=== PATIENT | male | born 1940 | race Caucasian/White ===

== ENCOUNTER → 2023-02-11 | Outpatient (CLI) | payer MEDICARE, OTHER ==
[~2023-02-11] MED LIST: ALPR0.5T7 PO; ASPI81CH43 PO; ATEN50TA PO; ATOR-47 PO; CITA20TA9; CLOP75TA28 PO; HYDR12.59 PO; HYDR500T13 PO; LISIPOW PO; METF-370 PO; TERA2CAP45 PO
== END | disposition home or self-care (01) ==
LOC: Rad HDHVI 10:06
PROVIDERS: ATTEND Internal Medicine Cardiovascular Disease
DX: I34.81 Nonrheumatic mitral (valve) annulus calcification (principal); R06.02 Shortness of breath; I10 Essential (primary) hypertension
CPT/HCPCS: 93306

== ENCOUNTER → 2023-02-16 | Outpatient (CLI) | payer MEDICARE, OTHER | END | disposition home or self-care (01) | LOC: Rad HDHVI 10:11 | PROVIDERS: ATTEND Internal Medicine Cardiovascular Disease | DX: I65.22 Occlusion and stenosis of left carotid artery (principal); I65.02 Occlusion and stenosis of left vertebral artery; I11.0 Hypertensive heart disease with heart failure; I50.43 Acute on chronic combined systolic (congestive) and diastolic (congestive) heart failure | CPT/HCPCS: 93880 ==

== ENCOUNTER 2023-08-08 07:15 | Inpatient (IN) | payer MEDICARE ==
[2023-07-07 09:30] LABS: Basophils # (auto) 0 10 ^3/uL (0-0.2); Basophils % (auto) 0.3 % (0.0-2.0); Eosinophils # (auto) 0.2 10 ^3/uL (0-0.8); Eosinophils % (auto) 2.4 % (0.0-7.0); Hematocrit 36.2 % (41.0-53.0); Lymphocytes % (auto) 10.8 % (10.0-50.0); Mean Corpuscular Hemoglobin 28.5 pg (28.0-32.0); Mean Corpuscular Hgb Conc. 33.2 g/dL (32.0-36.0); Monocytes # (auto) 1.2 10 ^3/uL (0-1.3); Monocytes % (auto) 13.5 % (0.0-12.0); Neutrophils # (auto) 6.5 10 ^3/uL (1.6-8.6); Red Blood Cells 4.21 10^6/uL (4.5-5.90); Red Cell Distribution Width 14.8 % (11.8-14.3)
[2023-07-07 09:58] LABS: INR 1.01 (0.9-1.15); Partial Thromboplastin Time 30.5 SEC (24.5-34.5); Prothrombin Time 10.6 sec (9.3-11.8); Urine Bacteria NONE SEEN /hpf (None Seen); Urine Blood Negative /uL (Negative); Urine Clarity Clear (Clear); Urine Color Colorless (Yellow); Urine Protein, UAD Negative (Negative); Urine Urobilinogen Normal (Negative); Urine WBC <1 /hpf (0 - 3)
[2023-07-07 10:23] LABS: Alanine Aminotransferase 15 U/L (7-40); Albumin 4.3 g/dL (3.2-4.8); Alkaline Phosphatase 42 U/L (46-116); Anion Gap 5 (5-15); Aspartate Aminotransferase 14 U/L (13-40); Blood Urea Nitrogen 14 mg/dL (9-23); Calcium 9.4 mg/dL (8.5-10.1); Carbon Dioxide 28 mmol/L (20-30); Chloride 96 mmol/L (98-107); Glucose 78 mg/dL (74-106); Potassium 4.3 mmol/L (3.5-5.1); Sodium 129 mmol/L (136-145)
[2023-07-07 10:24] LABS: Bilirubin, Total 0.5 mg/dL (0.2-1.0)
[2023-08-03 09:38] LABS: Basophils # (auto) 0 10 ^3/uL (0-0.2); Basophils % (auto) 0.4 % (0.0-2.0); Eosinophils # (auto) 0.2 10 ^3/uL (0-0.8); Eosinophils % (auto) 2.9 % (0.0-7.0); Hematocrit 35.7 % (41.0-53.0); Hemoglobin 12.1 g/dL (13.5-17.5); Mean Corpuscular Hemoglobin 28.5 pg (28.0-32.0); Mean Corpuscular Hgb Conc. 33.8 g/dL (32.0-36.0); Mean Corpuscular Volume 84.5 fL (80.0-100.0); Monocytes % (auto) 11.5 % (0.0-12.0); Neutrophils # (auto) 6.2 10 ^3/uL (1.6-8.6); Neutrophils % (auto) 73.2 % (37.0-80.0); Nucleated Red Blood Cells % 0.1 %; Red Blood Cells 4.23 10^6/uL (4.5-5.90); Red Cell Distribution Width 14.8 % (11.8-14.3); White Blood Cell 8.5 10^3/uL (4.4-10.8)
[2023-08-03 10:04] LABS: Urine Bacteria NONE SEEN /hpf (None Seen); Urine Blood Negative /uL (Negative); Urine Clarity Clear (Clear); Urine Color Colorless (Yellow); Urine Protein, UAD Negative (Negative); Urine Urobilinogen Normal (Negative); Urine WBC <1 /hpf (0 - 3)
[2023-08-03 10:18] LABS: INR 1.02 (0.9-1.15); Partial Thromboplastin Time 29.6 SEC (24.5-34.5); Prothrombin Time 10.7 sec (9.3-11.8)
[2023-08-03 10:33] LABS: Alanine Aminotransferase 14 U/L (7-40); Albumin 4.3 g/dL (3.2-4.8); Alkaline Phosphatase 39 U/L (46-116); Anion Gap 6 (5-15); Aspartate Aminotransferase 11 U/L (13-40); Bilirubin, Total 0.5 mg/dL (0.2-1.0); Blood Urea Nitrogen 14 mg/dL (9-23); Calcium 9.7 mg/dL (8.5-10.1); Carbon Dioxide 31 mmol/L (20-30); Chloride 93 mmol/L (98-107); Glucose 107 mg/dL (74-106); Potassium 3.8 mmol/L (3.5-5.1); Sodium 130 mmol/L (136-145); Total Protein 7.1 g/dL (5.7-8.2)
[~2023-08-08] VITALS: Ht 177.8 cm; Wt 86.2 kg
[~2023-08-08 07:15] MED LIST changes: -ALPR0.5T7 PO; -ASPI81CH43 PO; -ATEN50TA PO; -ATOR-47 PO; +ATOR40TA52 PO; +BUSP5TAB51 PO; -CITA20TA9; +FINA5TAB4 PO; +GABA800T97 PO; +GLIP5TAB12 PO; -HYDR500T13 PO; +LATA0.008 OP; +LISI40TA16 PO; -LISIPOW PO; +NETA0.02 OP; +TAMS1CAP25 PO; -TERA2CAP45 PO; +TRAM50TA2 PO
[2023-08-08] MEDS ORDERED: MIDAZOLAM HCL 2MG/2ML 2ml VIAL (1mg/ml) ONE (07:52)
[2023-08-08] MEDS ORDERED: fentaNYL CITRATE 100 MCG/2 ML VL ONE (07:52)
[2023-08-08] MEDS: PREGABALIN CAPSULE 75 MG CAP ONE (07:53)
[2023-08-08] MEDS: ceFAZolin 2 GM/D5W50ml 50 ML IV ONE (07:53)
[2023-08-08] MEDS: ACETAMINOPHEN IV 100 ML IV ONE (07:53)
[2023-08-08] MEDS ORDERED: PROPOFOL 10 MG/ML 20 ML IV ONE (07:55)
[2023-08-08] MEDS ORDERED: MORPHINE SULF PF 5 MG/10 ML VIAL ONE (07:58)
[2023-08-08] MEDS ORDERED: KETOROLAC TROMETH 30 MG/ML 1ML VIAL ONE (07:58)
[2023-08-08] MEDS: TRANEXAMIC ACID 20 ML ONE (08:07)
[2023-08-08] MEDS: VANCOMYCIN HCL 1000 MG VL ONE (08:08)
[2023-08-08] MEDS: CELECOXIB 100 MG CAP ONE (08:17)
[2023-08-08] MEDS: CELECOXIB 100 MG CAP PO ONE (08:22)
[2023-08-08] MEDS: PREGABALIN CAPSULE 75 MG CAP PO ONE (08:22)
[2023-08-08] MEDS: ACETAMINOPHEN IV 1000 MG/100ML (10MG/ML) IV ONE (08:22)
[2023-08-08] MEDS ORDERED: ePHEDrine SULFATE 50 MG/ML AMP ONE (09:15)
[2023-08-08] MEDS: GENTAMICIN SULFATE 2 ML ONE (09:22)
[2023-08-08] MEDS ORDERED: TOBRAMYCIN INJ 80 MG in D5W 5% 100 ML IV ONE (09:30)
[2023-08-08] MEDS: TOBRAMYCIN SULFATE 40 MG/ML 2ML VIAL IV ONE (09:45)
[2023-08-08] MEDS ORDERED: EPINEPHrine HCL 1 MG/1 ML AMP ONE (09:53)
[2023-08-08] MEDS ORDERED: DEXTROSE (50%) 50ML SYRG IV PRN (10:15)
[2023-08-08] MEDS ORDERED: ONDANSETRON HCL 4 MG/2 ML VIAL IV PRN ×2 (10:15→10:45)
[2023-08-08] MEDS ORDERED: MORPHINE SULFATE INJ 2 MG/ml SYRG IV PRN (10:15)
[2023-08-08] MEDS ORDERED: NITROGLYCERIN 0.4 MG SL TAB SL PRN (10:15)
[2023-08-08] MEDS ORDERED: LACTATED RINGER'S 1,000 ML IV SCH (10:15)
[2023-08-08] MEDS ORDERED: HYDROmorphone HCL 2 MG/ML VL/or syr IV PRN ×2 (10:15→10:45)
[2023-08-08] MEDS ORDERED: ceFAZolin 1GM/50ML 50 ML IV SCH (10:15)
[2023-08-08 10:19] VITALS: O2SAT 96
[2023-08-08] MEDS: BUPIVACAINE 0.5% P/F INJ 10 ML VIAL ONE (10:25)
[2023-08-08] MEDS: InsuLIN REG 1unit/0.01ml Soln (100units/ml) SC SCH ×2 (11:30→22:14)
[2023-08-08] MEDS: LACTATED RINGER'S 1,000 ML IV SCH (11:45)
[2023-08-08] MEDS: ceFAZolin 1GM/50ML 50 ML IV SCH (15:15)
[2023-08-08 16:30] VITALS: BP 125/68; PULSE 69; RESP 20; TEMP 98.3; O2SAT 98
[2023-08-08] MEDS: ACCU-CHEK COMFORT CURVE STRIP VI SCH (17:00)
[2023-08-08] MEDS: OXYCODONE W/ ACETAMINOPHEN 5/325MG TABLET PO PRN (17:27)
[2023-08-08 17:46] VITALS: BP 116/71; PULSE 45; RESP 16; TEMP 97.3; O2SAT 97
[2023-08-08 20:00] VITALS: BP 123/66; PULSE 71; PULSE 82; RESP 16; RESP 18; TEMP 36.3; O2SAT 95
[2023-08-08 22:00] VITALS: BP 96/57; PULSE 57; RESP 16; TEMP 98.1; O2SAT 98
[2023-08-08] MEDS: DOCUSATE SOD 100 MG CAP PO SCH (22:00)
[2023-08-08] MEDS: ATORVASTATIN 20 MG TAB PO SCH (22:27)
[2023-08-09] VITALS (9 sets, daily range): BP systolic 104–182; BP diastolic 49–80; PULSE 59–87; RESP 14–20; TEMP 36.3; O2SAT 90–97
[2023-08-09 05:33] LABS: Basophils # (auto) 0 10 ^3/uL (0-0.2); Basophils % (auto) 0.2 % (0.0-2.0); Eosinophils # (auto) 0.3 10 ^3/uL (0-0.8); Eosinophils % (auto) 3.6 % (0.0-7.0); Hematocrit 30.5 % (41.0-53.0); Hemoglobin 10.3 g/dL (13.5-17.5); Lymphocytes # (auto) 0.7 10 ^3/uL (0.4-5.4); Lymphocytes % (auto) 9.6 % (10.0-50.0); Mean Corpuscular Hemoglobin 28.9 pg (28.0-32.0); Mean Corpuscular Hgb Conc. 33.7 g/dL (32.0-36.0); Mean Corpuscular Volume 85.7 fL (80.0-100.0); Monocytes # (auto) 0.9 10 ^3/uL (0-1.3); Monocytes % (auto) 11.8 % (0.0-12.0); Neutrophils # (auto) 5.6 10 ^3/uL (1.6-8.6); Neutrophils % (auto) 74.8 % (37.0-80.0); Red Blood Cells 3.56 10^6/uL (4.5-5.90); Red Cell Distribution Width 14.1 % (11.8-14.3); White Blood Cell 7.5 10^3/uL (4.4-10.8)
[2023-08-09 05:34] LABS: Chloride 100 mmol/L (98-107); Potassium 4.1 mmol/L (3.5-5.1); Sodium 130 mmol/L (136-145)
[2023-08-09 05:35] LABS: Anion Gap 5 (5-15); Calcium 8.9 mg/dL (8.5-10.1); Carbon Dioxide 25 mmol/L (20-30)
[2023-08-09 05:40] LABS: Blood Urea Nitrogen 23 mg/dL (9-23); Glucose 123 mg/dL (74-106)
[2023-08-09 05:41] LABS: BUN/Creatinine Ratio 18.3 (10.0-20.0)
[2023-08-09] MEDS ORDERED: LISINOPRIL 20 MG TAB PO SCH (10:00)
[2023-08-09] MEDS ORDERED: hydroCHLOROthiazide 25 MG TAB PO SCH (10:00)
[2023-08-09] MEDS: CLOPIDOGREL BISULFATE 75 MG TAB PO SCH (10:48)
[2023-08-09] MEDS: GABAPENTIN 400 MG CAP PO SCH (10:48)
[2023-08-09] MEDS: FINASTERIDE 5 MG TAB PO SCH (10:48)
[2023-08-09] MEDS: TAMSULOSIN HYDROCHLORIDE 0.4 MG CAP PO SCH (10:49)
[2023-08-09] MEDS: LOPERAMIDE HCL 2 MG CAP/TAB PO ONE (12:18)
[2023-08-09] MEDS: HYDROmorphone HCL 2 MG/ML VL/or syr IV PRN (12:23)
[2023-08-10] VITALS (7 sets, daily range): BP systolic 139–170; BP diastolic 58–83; PULSE 70–90; RESP 18–20; TEMP 36.3–37.2; O2SAT 93–97
[2023-08-10 06:24] LABS: Anion Gap 8 (5-15); Carbon Dioxide 24 mmol/L (20-30); Chloride 100 mmol/L (98-107); Potassium 3.8 mmol/L (3.5-5.1); Sodium 132 mmol/L (136-145)
[2023-08-10 06:25] LABS: Calcium 9.6 mg/dL (8.5-10.1)
[2023-08-10 06:30] LABS: BUN/Creatinine Ratio 13.1 (10.0-20.0); Blood Urea Nitrogen 13 mg/dL (9-23); Glucose 130 mg/dL (74-106)
[2023-08-10] MEDS: hydrALAZINE HCL 20 MG/ML VL IV PRN (12:23)
[2023-08-10] MEDS: OXYCODONE W/ ACETAMINOPHEN 5/325MG TABLET PO PRN (17:06)
[2023-08-11 05:00] VITALS: BP 141/93; PULSE 90; RESP 18; TEMP 98.3; O2SAT 99
[2023-08-11 08:00] VITALS: BP 144/66; PULSE 64; PULSE 78; RESP 18; TEMP 98.2; O2SAT 96
== END 2023-08-11 13:52 | DRG 470 ==
LOC: SUR 07:15 → TELE 10:17 → TELE-EAST 15:50
PROVIDERS: ADMIT Orthopaedic Surgery Adult Reconstructive Orthopaedic Surgery; ATTEND Internal Medicine
PROC: 0SRD0J9 Replacement of Left Knee Joint with Synthetic Substitute, Cemented, Open Approach (ICD-10-PCS; principal; 2023-08-08 08:47)
DX: M17.12 Unilateral primary osteoarthritis, left knee (principal); E87.1 Hypo-osmolality and hyponatremia; M21.162 Varus deformity, not elsewhere classified, left knee; E78.5 Hyperlipidemia, unspecified; I10 Essential (primary) hypertension; I25.10 Atherosclerotic heart disease of native coronary artery without angina pectoris; N40.0 Benign prostatic hyperplasia without lower urinary tract symptoms; Z91.013 Allergy to seafood; Z95.5 Presence of coronary angioplasty implant and graft; E11.319 Type 2 diabetes mellitus with unspecified diabetic retinopathy without macular edema; E11.40 Type 2 diabetes mellitus with diabetic neuropathy, unspecified; E66.9 Obesity, unspecified; J44.9 Chronic obstructive pulmonary disease, unspecified; Z68.27 Body mass index [BMI] 27.0-27.9, adult
CPT/HCPCS: 36415; 71045; 73562; 80048; 80053; 81001; 82962; 83036; 85025; 85610; 85730; 86850; 86900; 86901; 87070; 87075; 87205; 97110; 97116; 97163; 97530; G0378; J0131; J0171; J1815; J1885; J2250; J2704; J3490